=== PATIENT | male | born 1940 | race Caucasian/White ===

== ENCOUNTER 2020-07-18 08:04 | Day surgery (SDC) | payer OTHER, BC, SELFPAY ==
[~2020-07-18] VITALS: Ht 182.9 cm; Wt 122.7 kg
[2020-07-18] MEDS ORDERED: fentaNYL citrate 0.05 MG/ML VIAL ONE (09:45)
[2020-07-18] MEDS ORDERED: MIDAZOLAM 2 MG/2 ML VIAL ONE (09:45)
[2020-07-18] MEDS ORDERED: DEXTROSE 50% 50 ML SYR IVP ONE ×2 (10:02→13:25)
[2020-07-18] MEDS ORDERED: SIMETHICONE 40 MG/0.6 ML ONE (11:14)
[2020-07-18 11:32] LABS: BASOPHILS # (AUTO) 0.1 K/uL (0.00-0.22); BASOPHILS % (AUTO) 0.8 % (0.0-2.0); EOSINOPHILS # (AUTO) 0.2 K/uL (0-0.4); EOSINOPHILS % (AUTO) 1.9 % (0.0-4.0); LYMPHOCYTES # (AUTO) 1.7 K/uL (2.0-11.5); LYMPHOCYTES % (AUTO) 19.5 % (20.5-51.1); MEAN CORPUSCULAR HEMOGLOBIN 34 pg (27-31); MEAN CORPUSCULAR HGB CONC 33 g/dL (33-37); MEAN CORPUSCULAR VOLUME 104.2 fL (80-94); MONOCYTES # (AUTO) 0.5 K/uL (0.8-1.0); MONOCYTES % (AUTO) 5.8 % (1.7-9.3); NEUTROPHILS # (AUTO) 6.1 K/uL (1.8-7.7); PLATELET COUNT (AUTO) 93 K/uL (140-450); RED BLOOD CELL COUNT(AUTO) 1.82 MIL/uL (4.20-6.10); RED CELL DISTRIBUTION WIDTH 17.6 % (11.6-13.7); WHITE BLOOD COUNT (AUTO) 8.5 K/uL (4.8-10.8)
[2020-07-18 12:27] LABS: HEMATOCRIT 18.9 % (36-52); HEMOGLOBIN 6.2 g/dL (12.0-18.0)
[2020-07-18] MEDS ORDERED: MIDAZOLAM 2 MG/2 ML VIAL IVP ONE ×2 (13:25→13:45)
== END 2020-07-18 11:45 | disposition home or self-care (01) ==
LOC: MDS 08:04 → MFCC 08:04 → MDS 11:45
PROVIDERS: ATTEND Internal Medicine Gastroenterology
DX: K92.1 Melena (principal); I10 Essential (primary) hypertension; E78.00 Pure hypercholesterolemia, unspecified; E11.9 Type 2 diabetes mellitus without complications; Z88.6 Allergy status to analgesic agent; Z79.899 Other long term (current) drug therapy; Z87.11 Personal history of peptic ulcer disease; Z95.0 Presence of cardiac pacemaker
CPT/HCPCS: 36415; 36430; 43255; 71045; 80053; 85025; 85610; 85730; 86886; 86900; 86901; 86920; 87426; 93005; 99285; J2250; J7120; P9016; J3010

== ENCOUNTER 2020-07-18 13:39 | Emergency (ER) | payer OTHER, BC, SELFPAY ==
[~2020-07-18] VITALS: Ht 182.9 cm; Wt 116.6 kg
--- NOTE | 2020-07-18 13:39 | NUR ---
PT W/C ASSISTED TO BED 7.
[2020-07-18 13:49] VITALS: BP 129/81
--- NOTE | 2020-07-18 13:54 | NUR ---
tower technician at pt bedside.
[2020-07-18 14:07] LABS: BASOPHILS # (AUTO) 0.1 K/uL (0.00-0.22); BASOPHILS % (AUTO) 0.8 % (0.0-2.0); EOSINOPHILS # (AUTO) 0.1 K/uL (0-0.4); EOSINOPHILS % (AUTO) 1.7 % (0.0-4.0); LYMPHOCYTES # (AUTO) 1.7 K/uL (2.0-11.5); LYMPHOCYTES % (AUTO) 19.6 % (20.5-51.1); MEAN CORPUSCULAR HEMOGLOBIN 34 pg (27-31); MEAN CORPUSCULAR HGB CONC 33 g/dL (33-37); MEAN CORPUSCULAR VOLUME 104.9 fL (80-94); MONOCYTES # (AUTO) 0.5 K/uL (0.8-1.0); MONOCYTES % (AUTO) 5.8 % (1.7-9.3); NEUTROPHILS # (AUTO) 6.4 K/uL (1.8-7.7); NEUTROPHILS % (AUTO) 72.1 % (42.2-75.2); PLATELET COUNT (AUTO) 110 K/uL (140-450); RED BLOOD CELL COUNT(AUTO) 1.81 MIL/uL (4.20-6.10); RED CELL DISTRIBUTION WIDTH 18.1 % (11.6-13.7); WHITE BLOOD COUNT (AUTO) 8.9 K/uL (4.8-10.8)
[2020-07-18 14:19] LABS: HEMOGLOBIN 6.2 g/dL (12.0-18.0)
[2020-07-18 14:27] LABS: PROTHROMBIN TIME 11.6 secs (10.8-13.4)
[2020-07-18 14:30] LABS: ALBUMIN 3.2 g/dL (3.4-5.0); ANION GAP 13.2 (8-16); ASPARTATE AMINOTRANSFERASE 22 U/L (15-37); CARBON DIOXIDE 24.5 mmol/L (21-32); CHLORIDE 110 mmol/L (98-107); CREATININE 3.5 mg/dL (0.6-1.3); GLUCOSE 86 mg/dL (74-106); POTASSIUM 4.7 mmol/L (3.5-5.1); SODIUM SERUM 143 mmol/L (136-145); TOTAL BILIRUBIN 0.4 mg/dL (0.0-1.0)
[2020-07-18 14:37] LABS: UREA NITROGEN, BLOOD 114 mg/dL (7-18)
--- NOTE | 2020-07-18 19:25 | NUR ---
REPORT RECEIVED FROM DORY FOSTER FOR CONTINUITY OF CARE
[2020-07-18 19:45] VITALS: BP 129/81
--- NOTE | 2020-07-18 19:45 | NUR ---
Patient discharged with v/s stable. Written and verbal after care instructions given and explained. Patient alert, oriented and verbalized understanding of instructions. Wheel Chair Assisted with to car. All questions addressed prior to discharge. ID band removed. Patient advised to follow up with PMD. Opportunity to ask questions provided and answered.
== END 2020-07-18 19:45 | disposition home or self-care (01) ==
LOC: MED 13:39
DX: D64.9 Anemia, unspecified (principal); T85.838A Hemorrhage due to other internal prosthetic devices, implants and grafts, initial encounter; I11.9 Hypertensive heart disease without heart failure; Z95.0 Presence of cardiac pacemaker; Z88.6 Allergy status to analgesic agent
CPT/HCPCS: 36415; 36430; 71045; 80053; 85025; 85610; 85730; 86886; 86900; 86901; 86920; 93005; 99285; P9016